=== PATIENT | male | born 1980 | race Caucasian/White ===

== ENCOUNTER 2022-03-23 14:27 | Emergency (ER) | payer MEDICAID ==
[~2022-03-23] VITALS: Ht 180.3 cm; Wt 108.9 kg
[2022-03-23 14:36] VITALS: BP 160/107
--- NOTE | 2022-03-23 15:05 | NUR ---
SWABBED AND SENT TO LAB
[2022-03-23] MEDS ORDERED: NAPROXEN 500 MG TAB PO SCH (15:40)
[2022-03-23] MEDS ORDERED: ONDANSETRON 4 MG ODT PO ONE (15:40)
[2022-03-23] MEDS ORDERED: ONDA-188 PO (15:57)
[2022-03-23] MEDS ORDERED: PROM473S5 PO (15:57)
[2022-03-23] MEDS ORDERED: NAPR-1847 PO (15:57)
[2022-03-23] MEDS ORDERED: IBUPROFEN 600 MG TAB ONE (16:05)
[2022-03-23] MEDS ORDERED: IBUPROFEN 600 MG TAB PO ONE (16:05)
--- NOTE | 2022-03-23 16:10 | NUR ---
PT NOT FOUND IN LOBBY OR OUTSIDE LOBBY, LEFT W/O DC PAPERS
== END 2022-03-23 17:17 | disposition home or self-care (01) ==
LOC: MED 14:27
DX: B34.9 Viral infection, unspecified (principal); Z20.822 Contact with and (suspected) exposure to COVID-19; R51.9 Headache, unspecified; R05.9 Cough, unspecified; R11.2 Nausea with vomiting, unspecified; Z88.0 Allergy status to penicillin; Z79.899 Other long term (current) drug therapy
CPT/HCPCS: 99283; Q0162

== ENCOUNTER 2022-12-03 13:32 | Emergency (ER) | payer MEDICAID ==
[~2022-12-03] VITALS: Ht 182.9 cm; Wt 124.8 kg
[~2022-12-03 13:32] MED LIST: IBUP-2213 PO; NAPR-1847 PO; ONDA-188 PO; PROM473S5 PO
[2022-12-03 13:55] VITALS: BP 140/88; PULSE 76; RESP 20; TEMP 97.4; O2SAT 97
[2022-12-03 14:09] LABS: BASOPHILS % (AUTO) 0.6 % (0.0-2.0); EOSINOPHILS # (AUTO) 0.2 K/uL (0-0.4); EOSINOPHILS % (AUTO) 2.2 % (0.0-4.0); HEMATOCRIT 40.5 % (36-52); LYMPHOCYTES % (AUTO) 27.3 % (20.5-51.1); MEAN CORPUSCULAR HEMOGLOBIN 31 pg (27-31); MEAN CORPUSCULAR HGB CONC 35 g/dL (33-37); MEAN CORPUSCULAR VOLUME 89.7 fL (80-94); MONOCYTES # (AUTO) 0.6 K/uL (0.8-1.0); NEUTROPHILS # (AUTO) 4.6 K/uL (1.8-7.7); NEUTROPHILS % (AUTO) 61.9 % (42.2-75.2); PLATELET COUNT (AUTO) 349 K/uL (140-450); RED BLOOD CELL COUNT(AUTO) 4.52 MIL/uL (4.20-6.10); RED CELL DISTRIBUTION WIDTH 12.5 % (11.6-13.7); WHITE BLOOD COUNT (AUTO) 7.4 K/uL (4.8-10.8)
[2022-12-03 14:27] LABS: ALBUMIN 3.9 g/dL (3.4-5.0); ANION GAP 11.5 (8-16); CALCIUM 8.7 mg/dL (8.5-10.1); CARBON DIOXIDE 31.3 mmol/L (21-32); POTASSIUM 3.8 mmol/L (3.5-5.1); TOTAL BILIRUBIN 0.8 mg/dL (0.0-1.0); TOTAL PROTEIN, SERUM 7.6 g/dL (6.4-8.2)
[2022-12-03 14:28] LABS: APPEARANCE,URINE CLEAR (CLEAR); BILIRUBIN,URINE NEGATIVE (NEGATIVE); BLOOD, URINE NEGATIVE (NEGATIVE); COLOR,URINE YELLOW (YELLOW); LEUKOCYTE ESTERASE ,URINE NEGATIVE (NEGATIVE); NITRITE, URINE NEGATIVE (NEGATIVE); PROTEIN,URINE TRACE (NEGATIVE); UGLUCOSE NEGATIVE (NEGATIVE); UROBILINOGEN,URINE 0.2 EU/dL (0.2 - 1)
[2022-12-03] MEDS ORDERED: KETOROLAC 30 MG/ML VIAL IVP ONE (14:40)
[2022-12-03] MEDS ORDERED: NACL 0.9% 1,000 ML IV ONE (14:40)
[2022-12-03] MEDS ORDERED: BEN10 PO (15:22)
[2022-12-03] MEDS ORDERED: IBUP-2213 PO (15:22)
[2022-12-03] MEDS ORDERED: ONDA-188 SL (15:22)
[2022-12-03] MEDS ORDERED: KETOROLAC 30 MG/ML VIAL ONE (16:24)
[2022-12-03 17:07] VITALS: BP 123/80; PULSE 70; RESP 18; TEMP 97.9; O2SAT 98
== END 2022-12-03 17:07 | disposition home or self-care (01) ==
LOC: MED 13:32
DX: R19.7 Diarrhea, unspecified (principal); E86.0 Dehydration; R10.12 Left upper quadrant pain; I10 Essential (primary) hypertension; Z90.49 Acquired absence of other specified parts of digestive tract; Z79.899 Other long term (current) drug therapy; Z79.1 Long term (current) use of non-steroidal anti-inflammatories (NSAID); Z88.0 Allergy status to penicillin
CPT/HCPCS: 36415; 80053; 81003; 83690; 85025; 96361; 96374; 99283; J1885; J7030